=== PATIENT | female | born 1980 | race Caucasian/White ===

== ENCOUNTER → 2016-11-28 | Outpatient (CLI) | payer OTHER ==
[~2016-11-28] MED LIST: KETAMINE 100 MG/1 ML - 5 ML ONE; LIDOCAINE W/ SODIUM BICARB 0.5 ML SYR ONE; Lactated Ringers 1,000 ML PRIMARY IV ONE
--- NOTE | 2016-11-28 12:09 | DI ---
CT BONE DENSITOMETRY OF THE SPINE AND HIP, 11/28/2016 8:10 AM : Clinical History: Drug level monitoring. Previous Exam: July 06, [address] (QCT) Bone Mineral Densitometry: The [place] scans are normal. Low dose scans are obtained of the lumbar spine and sampling is obtaine d through the midbodies of L1 and L2. The average volumetric bone mineral density (BMD) of the lumbar spine is 122.2 mg/cm3. This value corresponds to a volumetric T-score of -1.8 and Z-score of -1.5 as assessed by this BMD software. Volumetric 3D QCT and areal DEXA T-scores and Z-scores are not direct ly equivalent. Using the [employer]'s (ACR) volumetric QCT trabecular spine BMD co nversion table that is closely equivalent to the areal WHO diagnostic categories, this patient falls into the category of normal bone mineral density. CT X-Ray Absorptiometry (CTXA) Hip Bone Mineral Densitometry: Low dose scans are obtained through the hips for assessment of bone mineral density (BMD) and T-score s and Z-scores of the left hip. Total hip BMD: 0.665 mg/cm2 T-score: -2.21 Z-score: Femoral neck BMD: 0.382 mg/cm2 T-score: -3.72 Z-score: Note: T-scores of the spine and hip exhibit discordant readings approximately 40% of the time in eval uated patients. Changes in BMD determined either by volumetric QCT or areal DEXA are more reliable in assessment of change in a patient's BMD status rather than changes in T-scores. The CTXA hip CT bone mineral density measurements and the resultant T-scores and Z-scores are exact hip DEXA scan equival ents. The femoral neck T-score can be used in the WHO's FRAX program for assessing an untreated patie nt's 10 year fracture risk. READING: Normal bone marrow density of the lumbar spine with osteoporosis of the left femoral neck.
== END ==
LOC: CT 08:04
PROVIDERS: ATTEND Obstetrics & Gynecology
DX: M85.80 Other specified disorders of bone density and structure, unspecified site (principal); G80.9 Cerebral palsy, unspecified; F79 Unspecified intellectual disabilities; Z51.81 Encounter for therapeutic drug level monitoring
CPT/HCPCS: 77078; J2704; J7120